=== PATIENT | female | born 1985 ===

== ENCOUNTER 2017-09-07 20:12 | Emergency (ER) | payer SELFPAY ==
[2017-09-07 20:12] VITALS: BMI 24.2
--- NOTE | 2017-09-07 23:25 | C.PDOC ---
History Of Present Illness 32 year old female presents to the ER with a complaint of pain to the mid chest and back for the past 2 days that worsens with movement and deep inspiration, associated with a cough. Denies sick contact, recent travel, or SOB. NO OCP use , no recent travel or recent immobilization h/o Time Seen by Provider: 09/07/17 20:51 Chief Complaint (Nursing): Chest Pain History Per: Patient History/Exam Limitations: no limitations Onset/Duration Of Symptoms: Days Current Symptoms Are (Timing): Still Present Associated Symptoms: denies: Nausea, Dyspnea, Diaphoresis, Syncope Modifying Factors: None Exacerbating Factors: Movement, Deep Breathing Alleviating Factors: None Recent travel outside of the [place]: No Past Medical History Reviewed: Historical Data, Nursing Documentation, Vital Signs Vital Signs: Last Vital Signs Temp 98.2 F 09/07/17 23:34 Pulse 76 09/07/17 23:34 Resp 18 09/07/17 23:34 BP 110/71 09/07/17 23:34 Pulse Ox 96 09/07/17 23:52 - Medical History PMH: Asthma Surgical History: No Surg Hx - [facility] Procedures DRAINAGE OF SPINAL CANAL, PERCUTANEOUS APPROACH, DIAGNOSTIC (08/21/16) Family History: States: Unknown Family Hx - Social History Hx Tobacco Use: No Hx Alcohol Use: No Hx Substance Use: No - Immunization History Hx Tetanus Toxoid Vaccination: No Hx Influenza Vaccination: No Hx Pneumococcal Vaccination: No Review Of Systems Constitutional: Negative for: Fever, Chills Respiratory: Positive for: Cough. Negative for: Shortness of Breath Gastrointestinal: Negative for: Vomiting Musculoskeletal: Positive for: Back Pain, Other (Chest wall) Physical Exam - Physical Exam Appears: Non-toxic, No Acute Distress Skin: Normal Color, Warm, Dry Head: Atraumatic, Normacephalic Eye(s): bilateral: Normal Inspection Oral Mucosa: Moist Neck: Normal, Supple Chest: Symmetrical, Tenderness (With palpation) Cardiovascular: Rhythm Regular Respiratory: Normal Breath Sounds, No Rales, No Rhonchi, No Wheezing Gastrointestinal/Abdominal: Soft, No Tenderness Neurological/Psych: Oriented x3, Normal Speech ED Course And Treatment ECG: Interpreted By Me, Viewed By Me ECG Rhythm: Sinus Rhythm ECG Interpretation: Normal Interpretation Of ECG: No ST/T wave changes Rate From EC O2 Sat by Pulse Oximetry: 96 (Room air) Pulse Ox Interpretation: Normal - Radiology CXR: Interpreted by Me, Viewed By Me CXR Interpretation: Yes: No Acute Disease. No: Infiltrates Progress Note: Patient reassured pain is most likely musculoskeletal rather than cardiac due to minimal risk factors and normal EKG, CXR was negative for abnormalites, tylenol was administered for pain and patient instructed to follow up with PMD for further evaluation. Disposition Counseled Patient/Family Regarding: Need For Followup, Rx Given - Disposition Referrals: [facility] [Outside] Disposition: HOME/ ROUTINE Disposition Time: 23:22 Condition: STABLE Additional Instructions: Please follow up in Clinic Return to ER if worse Prescriptions: traMADol [Ultram] 50 mg PO TID #14 tab Instructions: Upper Respiratory Infection (ED), Musculoskeletal Pain (ED) Forms: [employer] (Luxembourger) Print Language: SETSWANA - Clinical Impression Clinical Impression: Upper respiratory infection - Scribe Statement The provider has reviewed the documentation as recorded by the Scribe Frank Hill All medical record entries made by the Scribe were at my direction and personally dictated by me. I have reviewed the chart and agree that the record accurately reflects my personal performance of the history, physical exam, medical decision making, and the department course for this patient. I have also personally directed, reviewed, and agree with the discharge instructions and disposition.
[2017-09-07 23:35] VITALS: BP 110/71; PULSE 76; RESP 18; TEMP 98.2
[2017-09-07 23:47] VITALS: O2SAT 96
--- NOTE | 2017-09-08 09:22 | RAD ---
HISTORY: chest , back pain COMPARISON: Portable chest 05/14/2015 TECHNIQUE: Chest PA and lateral FINDINGS: LUNGS: No active pulmonary disease. PLEURA: No significant pleural effusion identified. No pneumothorax apparent. CARDIOVASCULAR: Normal. OSSEOUS STRUCTURES: No significant abnormalities. VISUALIZED UPPER ABDOMEN: Normal. OTHER FINDINGS: None. IMPRESSION: No interval acute cardiopulmonary disease appreciated.
--- NOTE | 2017-09-09 10:36 | CARD ---
APPROVED REPORT EKG Measurement Heart [id number] <Conclusion> Normal sinus rhythm Nonspecific ST abnormality Abnormal ECG
== END 2017-09-07 23:35 | disposition home or self-care (01) ==
LOC: C.ER 20:12
DX: J06.9 Acute upper respiratory infection, unspecified (principal)

== ENCOUNTER 2017-12-24 07:32 | Emergency (ER) | payer OTHER ==
[2017-12-24 07:38] VITALS: BMI 28.3
[2017-12-24 07:39] VITALS: RESP 16; O2SAT 100
[2017-12-24 07:57] LABS: HCG,QUALITATIVE URINE POSITIVE (NEGATIVE)
[2017-12-24 08:12] LABS: SQUAMOUS EPITHIAL 27 /hpf (0-5); URINE BACTERIA OCC (<OCC); URINE BILIRUBIN NEGATIVE (NEGATIVE); URINE BLOOD 3+ (NEGATIVE); URINE CLARITY Hazy (Clear); URINE COLOR Yellow (YELLOW); URINE GLUCOSE (UA) NORMAL (Normal); URINE LEUKOCYTE ESTERASE 3+ Leu/uL (Negative); URINE PROTEIN 1+ mg/dL (NEGATIVE); URINE UROBILINOGEN NORMAL mg/dL (0.2-1.0)
--- NOTE | 2017-12-24 08:51 | C.PDOC ---
History Of Present Illness 32 y/o female currently 6 weeks presents to ED with complaints of vaginal bleeding since yesterday with mild suprapubic pain. Patient reports she has her first OBGYN appointment 12/24. Patient states yesterday she slipped and caught herself, denies falling to ground. Denies fever, chills, back pain, nausea, vomiting or any other complaints at this time. LMP 11/04/2017 Time Seen by Provider: 12/24/17 07:46 Chief Complaint (Nursing): Female Genitourinary History Per: Patient History/Exam Limitations: no limitations Onset/Duration Of Symptoms: Days Current Symptoms Are (Timing): Still Present Past Medical History Reviewed: Historical Data, Nursing Documentation, Vital Signs Vital Signs: Last Vital Signs Temp 98.2 F 12/24/17 11:06 Pulse 78 12/24/17 11:06 Resp 16 12/24/17 11:06 BP 112/68 12/24/17 11:06 Pulse Ox 100 12/24/17 14:09 - Medical History PMH: Asthma Surgical History: No Surg Hx - [facility] Procedures DRAINAGE OF SPINAL CANAL, PERCUTANEOUS APPROACH, DIAGNOSTIC (08/21/16) Family History: States: No Known Family Hx - Social History Hx Tobacco Use: No Hx Alcohol Use: No Hx Substance Use: No - Immunization History Hx Tetanus Toxoid Vaccination: No Hx Influenza Vaccination: No Hx Pneumococcal Vaccination: No Review Of Systems Constitutional: Negative for: Fever, Chills Gastrointestinal: Positive for: Abdominal Pain. Negative for: Nausea, Vomiting Genitourinary: Positive for: Vaginal Bleeding. Negative for: Dysuria Musculoskeletal: Negative for: Back Pain Skin: Negative for: Rash Physical Exam - Physical Exam Appears: Non-toxic, No Acute Distress Skin: Normal Color, Warm, Dry, No Rash Head: Atraumatic, Normacephalic Oral Mucosa: Moist Neck: Normal ROM, Supple Cardiovascular: Rhythm Regular, No Murmur Respiratory: Normal Breath Sounds, No Rales, No Rhonchi, No Wheezing Gastrointestinal/Abdominal: Soft, No Tenderness, No Guarding, No Rebound Back: No CVA Tenderness Extremity: Bilateral: Atraumatic Neurological/Psych: Oriented x3, Normal Speech, Normal Cognition ED Course And Treatment - Laboratory Results Result Diagrams: 12/24/17 08:54 12/24/17 08:54 O2 Sat by Pulse Oximetry: 100 (RA) Pulse Ox Interpretation: Normal - CT Scan/US Abdomen US Other Rad Studies (CT/US): Read By Radiologist, Radiology Report Reviewed CT/US Interpretation: Indication: preg, pain right side, bleeding. Comparison: None. Technique: Real-time transabdominal pelvic ultrasound was performed. In addition a transvaginal pelvic ultrasound was necessary to better depict pelvic anatomy. Findings: The uterus measures approximately 9.3 x 5.9 x 7.4 cm. Anteverted. 1.7 x 1.5 x 1.6 cm submucosal fibroid. Cervix length measures approximately 3.3 cm. Intrauterine cystic structure consistent with gestational sac measures 1.1 cm and is compatible with a gestational age of 5 weeks 2 days. No evidence of pole or yolk sac. The right ovary measures 4.0 x 1.8 x 3.1 cm. The left ovary measures 2.4 x 1.5 x 2.5 cm. Blood flow was demonstrated to both ovaries. Small pelvic fluid, cul-de-sac. Impression: Intrauterine gestational sac consistent with gestational age 5 weeks 2 days. No evidence of pole or yolk sac. Correlate clinically and follow-up as indicated. 1.7 cm submucosal fibroid. Small pelvic fluid, cul-de-sac. Medical Decision Making Medical Decision Making: Impression: Pelvic pain, Differential Diagnosis included but are not limited to: ectopic, threatened AB , cystitis Plan: Blood work, Beta HCG, Abdomen US Prior Visits: Notes and results from previous visits were reviewed. Progress Notes: Labs reviewed and US reviewed Re-evaluation: Patient feels better, no bleeding. Discussed results with patient and provide copy of lab and imaging reports. Patient expresses understanding. Counseling was provided regarding the diagnosis and prognosis. All questions answered and there is agreement with the plan to discharge home with instructions. Patient is stable for discharge. Advised to return if symptoms persist or worsen. Reassessment Condition: Re-examined, Improved Dispo: Discharge home. Patient was recommended to follow up with [facility] or clinic in 1-2 days. Return to ED if symptoms worsen. Disposition Counseled Patient/Family Regarding: Diagnosis, Need For Followup - Disposition [facility] Disposition: HOME/ ROUTINE Disposition Time: 11:00 Condition: GOOD Additional Instructions: Tus laboratorios fueron normales. El ultrasonido muestra yosvany preez de 5 semanas y 2 quintero. No hay evidencia de saco vitelino . [place] puede ser demasiado temprano y deber realizar un seguimiento con green obstetra / ginec logo en 1 a 2 semanas para realizar anlisis de chemo y posiblemente necesite otro ultrasonido. Jaiden un seguimiento con green mdico primario o clnica en 2-5 quintero para yosvany evaluacin adicional Regrese al departamento de emergencia en cualquier momento si los sntomas persisten o empeoran. Your labs were normal. Ultrasound shows pregancy of 5 weeks 2 days. There is no evidence of yolk sac. This may be too early and you will need to follow up with your [facility] in 1-2 weeks for repeat bloodwork and possibly need another ultrasound. Follow up with your primary medical doctor or clinic in 2-5 days for further evaluation Return to the emergency department at any time if symptoms persist or worsen. Instructions: Threatened Miscarriage (DC) Forms: [employer] (Omani) Print Language: URDU - POA Present On Arrival: None - Clinical Impression Clinical Impression: Threatened miscarriage - PA / ACCESS ASSOC / Resident Statement MD/DO has reviewed & agrees with the documentation as recorded. - Scribe Statement The provider has reviewed the documentation as recorded by the Scribaliyah Grimm All medical record entries made by the Scribe were at my direction and personally dictated by me. I have reviewed the chart and agree that the record accurately reflects my personal performance of the history, physical exam, medical decision making, and the department course for this patient. I have also personally directed, reviewed, and agree with the discharge instructions and disposition.
[2017-12-24 09:12] LABS: BASO # 0.1 K/uL (0.0-0.2); BASO % 0.7 % (0.0-2.0); EOS # 0.2 K/uL (0.0-0.7); EOS % 2.3 % (0.0-4.0); HEMOGLOBIN 9.8 g/dL (11.0-16.0); LYMPH # 2.1 K/uL (1.0-4.3); LYMPH % 22.9 % (20.0-40.0); MEAN CORPUSCULAR HEMOGLOBIN 23.3 pg (27.0-31.0); MEAN CORPUSCULAR HGB CONC 31.8 g/dL (33.0-37.0); MEAN PLATELET VOLUME 9.1 fL (7.2-11.7); MONO # 0.7 K/uL (0.0-0.8); MONO % 7.2 % (0.0-10.0); NEUT # 6.2 K/uL (1.8-7.0); NEUT % 66.9 % (50.0-75.0); NRBC % 0.1 % (0.0-2.0); RBC 4.18 Mil/uL (3.80-5.20); RED CELL DISTRIBUTION WIDTH 19.4 % (11.5-14.5); WHITE BLOOD COUNT 9.3 K/uL (4.8-10.8)
[2017-12-24 09:15] LABS: MEAN CELL VOLUME 73.5 fL (81.0-99.0)
[2017-12-24 09:27] LABS: ALB/GLOB RATIO 1.1 (1.0-2.1); ALT/SGPT 22 U/L (9-52); AST/SGOT 30 U/L (14-36); BLOOD UREA NITROGEN 10 mg/dL (7-17); CALCIUM 8.5 mg/dl (8.6-10.4); GFR AFRICAN-AMERICAN > 60; GFR NON-AFRICAN AMERICAN > 60
--- NOTE | 2017-12-24 10:36 | US ---
Indication: preg, pain right side, bleeding Comparison: None. Technique: Real-time transabdominal pelvic ultrasound was performed. In addition a transvaginal pelvic ultrasound was necessary to better depict pelvic anatomy. Findings: The uterus measures approximately 9.3 x 5.9 x 7.4 cm. Anteverted. 1.7 x 1.5 x 1.6 cm submucosal fibroid. Cervix length measures approximately 3.3 cm. Intrauterine cystic structure consistent with gestational sac measures 1.1 cm and is compatible with a gestational age of 5 weeks 2 days. No evidence of pole or yolk sac. The right ovary measures 4.0 x 1.8 x 3.1 cm. The left ovary measures 2.4 x 1.5 x 2.5 cm. Blood flow was demonstrated to both ovaries. Small pelvic fluid, cul-de-sac. Impression: Intrauterine gestational sac consistent with gestational age 5 weeks 2 days. No evidence of pole or yolk sac. Correlate clinically and follow-up as indicated. 1.7 cm submucosal fibroid. Small pelvic fluid, cul-de-sac.
[2017-12-24 11:07] VITALS: BP 112/68; PULSE 78; TEMP 98.2
== END 2017-12-24 11:07 | disposition home or self-care (01) ==
LOC: C.ER 07:32
DX: O20.0 Threatened abortion (principal); Z3A.01 Less than 8 weeks gestation of pregnancy

== ENCOUNTER 2018-01-15 13:14 | Emergency (ER) | payer MEDICAID, OTHER ==
[2018-01-15 13:15] VITALS: BMI 28.3
--- NOTE | 2018-01-15 14:04 | C.PDOC ---
History Of Present Illness Ashly Collins is a 32 year old female, with no significant past medical history, who presents to the emergency department complaining of vaginal bleeding and crampy abdominal pain onset since today. Patient is x3 months , A0 and reports noting small amounts of vaginal bleeding. Patient reports she had an ultrasound done here 1 month ago which showed gestational sac estimating 5 weeks in size and another US about 1 week ago which showed 5-6 weeks in size. She did not take any medications for pain. She denies any dysuria, fever, or chills. No further medical complaints. PMD: None provided. Time Seen by Provider: 01/15/18 13:42 Chief Complaint (Nursing): Female Genitourinary History Per: Patient History/Exam Limitations: no limitations Onset/Duration Of Symptoms: Hrs (today) Current Symptoms Are (Timing): Still Present Quality Of Discomfort: Cramping Associated Symptoms: denies: Fever, Chills, Urinary Symptoms (dysuria) : 2 Para: 1 Miscarriage: 0 Past Medical History Reviewed: Historical Data, Nursing Documentation, Vital Signs Vital Signs: Last Vital Signs Temp 98.2 F 01/15/18 16:30 Pulse 67 01/15/18 16:30 Resp 18 01/15/18 16:30 BP 98/66 L 01/15/18 16:30 Pulse Ox 100 01/15/18 16:47 - Medical History PMH: Asthma Denies: Chronic Kidney Disease Surgical History: No Surg Hx - [facility] Procedures DRAINAGE OF SPINAL CANAL, PERCUTANEOUS APPROACH, DIAGNOSTIC (08/21/16) Family History: States: Unknown Family Hx - Social History Hx Tobacco Use: No Hx Alcohol Use: No Hx Substance Use: No - Immunization History Hx Tetanus Toxoid Vaccination: No Hx Influenza Vaccination: No Hx Pneumococcal Vaccination: No Review Of Systems Except As Marked, All Systems Reviewed And Found Negative. Constitutional: Negative for: Fever Respiratory: Negative for: Shortness of Breath Gastrointestinal: Positive for: Abdominal Pain (crampy) Physical Exam - Physical Exam Additional Physical Exam Comments: Constitutional: No acute distress. Head: Normocephalic. Atraumatic. Eyes: PERRL. ENT: Moist mucous membranes. Neck: Supple. Cardiovascular: Regular rate. Radial pulse 2+ bilaterally. Chest: No tenderness. Respiratory: Clear to auscultation bilaterally. GI: Soft. Suprapubic tenderness. No guarding. Nondistended. Back: No CVA tenderness. Musculoskeletal: No tenderness or swelling of extremities. Skin: No rash. Neurologic: Alert, no focal deficit. ED Course And Treatment - Laboratory Results Result Diagrams: 01/15/18 14:17 01/15/18 14:17 O2 Sat by Pulse Oximetry: 100 (RA) Pulse Ox Interpretation: Normal Medical Decision Making Medical Decision Making: Initial Impression: Initial Plan: --Type and screen --Beta-HCG, Quantitative --CMP --Lipase --CBC w/ differential --Tylenol 325mg tab 650 mg PO --Urine culture --Urinalysis --Transvaginal [US] --Reevaluation HCG [id number] Impression: 1. Suggestion of an intrauterine gestational sac measuring approximately 1.9 centimeters corresponding to a gestational age of approximately 6 weeks and 3 days. No pole or yolk sac identified. Correlate clinically and follow-up as clinically indicated. 2. 1.9 centimeter heterogeneous lesion in the mid fundal intramural region of the uterus suggestive for a fibroid lesion. 3. Cervix measures 3.2 centimeters. Trace fluid in the cervical canal. 4. Small amount of free fluid adjacent to the right ovary. Limited 1st trimester ultrasound for viability purposes only. Continued interval followup with serial ultrasound, serial HCG levels, and gynecological consultation would be helpful if clinically indicated. Hb stable from 1 month prior. Vitals stable. Discussed case with Dr. Leach. Given multiple ultrasounds with hcg over this duration of time, shows blighted ovum. No evidence of adnexal masses. Ovaries normal in size. Patient advised expectant management vs cytotec x 2 days. Instructed follow up with clinic within 2 weeks for re-evaluation. Instructed to return to ED for uncontrollable pain, bleeding, near syncope, chest pain, palpitations, etc. Disposition - [facility] Disposition: HOME/ ROUTINE Disposition Time: 16:43 Condition: STABLE Additional Instructions: Return to the Emergency Department if you have uncontrollable bleeding, feel like you are going to pass out, or uncontrollable pain. Prescriptions: Acetaminophen [Tylenol 325mg tab] 2 tab PO Q4H #30 tab Ibuprofen [Motrin] 600 mg PO Q6 #25 tab miSOPROStol [Cytotec] 2 tab PO TID #12 tab Forms: [employer] (Dominican) - Clinical Impression Clinical Impression: Blighted ovum - Scribe Statement The provider has reviewed the documentation as recorded by the Yuri Abdul Provider Attestation: All medical record entries made by the Isaíasibaliyah were at my direction and personally dictated by me. I have reviewed the chart and agree that the record accurately reflects my personal performance of the history, physical exam, medical decision making, and the department course for this patient. I have also personally directed, reviewed, and agree with the discharge instructions and disposition.
[2018-01-15 14:15] LABS: SQUAMOUS EPITHIAL 1 /hpf (0-5); URINE BACTERIA RARE (<OCC); URINE BILIRUBIN NEGATIVE (NEGATIVE); URINE BLOOD 1+ (NEGATIVE); URINE CLARITY Clear (Clear); URINE COLOR Yellow (YELLOW); URINE GLUCOSE (UA) NORMAL (Normal); URINE LEUKOCYTE ESTERASE NEG Leu/uL (Negative); URINE PROTEIN NEGATIVE (NEGATIVE); URINE UROBILINOGEN NORMAL mg/dL (0.2-1.0)
[2018-01-15 14:21] LABS: BASO # 0.1 K/uL (0.0-0.2); BASO % 1.1 % (0.0-2.0); EOS # 0.2 K/uL (0.0-0.7); EOS % 2.3 % (0.0-4.0); HEMOGLOBIN 10.1 g/dL (11.0-16.0); LYMPH # 2.1 K/uL (1.0-4.3); MEAN CELL VOLUME 74.1 fL (81.0-99.0); MEAN CORPUSCULAR HEMOGLOBIN 24.2 pg (27.0-31.0); MEAN CORPUSCULAR HGB CONC 32.6 g/dL (33.0-37.0); MEAN PLATELET VOLUME 7.9 fL (7.2-11.7); MONO # 0.8 K/uL (0.0-0.8); MONO % 8.2 % (0.0-10.0); NEUT # 6.1 K/uL (1.8-7.0); NEUT % 65.4 % (50.0-75.0); RBC 4.2 Mil/uL (3.80-5.20); RED CELL DISTRIBUTION WIDTH 19.6 % (11.5-14.5); WHITE BLOOD COUNT 9.2 K/uL (4.8-10.8)
[2018-01-15 14:36] LABS: ALB/GLOB RATIO 1.1 (1.0-2.1); ALT/SGPT 32 U/L (9-52); AST/SGOT 23 U/L (14-36); BLOOD UREA NITROGEN 8 mg/dL (7-17); CALCIUM 8.3 mg/dl (8.6-10.4); GFR AFRICAN-AMERICAN > 60; GFR NON-AFRICAN AMERICAN > 60; LIPASE 106 U/L (23-300)
--- NOTE | 2018-01-15 16:03 | US ---
Pelvic ultrasound History: Bleeding. . Comparison: Ultrasound dated 12/24/2017 Technique: Real-time sonography was performed through the pelvis utilizing transabdominal and transvaginal techniques. Findings: Please note this was a limited study for viability purposes only. Uterus: 11.9 x 5.4 x 6.6 centimeters. Heterogeneous echotexture. Retroverted. In the mid fundal region of the uterus, there is an intramural lesion suggestive for a fibroid lesion measuring 1.6 x 1.7 x 1.9 centimeters. Cervix measures 3.2 centimeters. Trace fluid in the cervical canal. Suggestion of an intrauterine gestational sac measuring 1.9 centimeters corresponding to a gestational age of approximately 6 weeks and 3 days. No yolk sac or pole identified. Small amount of free fluid adjacent to the right ovary. Right ovary: 2.8 x 2.5 x 2.8 centimeters. Normal flow. Left ovary: 2.7 x 1.5 x 2.4 centimeters. [place] [id number]. Impression: 1. Suggestion of an intrauterine gestational sac measuring approximately 1.9 centimeters corresponding to a gestational age of approximately 6 weeks and 3 days. No pole or yolk sac identified. Correlate clinically and follow-up as clinically indicated. 2. 1.9 centimeter heterogeneous lesion in the mid fundal intramural region of the uterus suggestive for a fibroid lesion. 3. Cervix measures 3.2 centimeters. Trace fluid in the cervical canal. 4. Small amount of free fluid adjacent to the right ovary. Limited 1st trimester ultrasound for viability purposes only. Continued interval followup with serial ultrasound, serial HCG levels, and gynecological consultation would be helpful if clinically indicated.
[2018-01-15 16:31] VITALS: BP 98/66; PULSE 67; RESP 18; TEMP 98.2
[2018-01-15 16:46] VITALS: O2SAT 100
== END 2018-01-15 17:05 | disposition home or self-care (01) ==
LOC: C.ER 13:14
DX: O02.0 Blighted ovum and nonhydatidiform mole (principal)

== ENCOUNTER 2018-01-18 18:40 | Emergency (ER) | payer MEDICAID ==
[2018-01-18 18:40] VITALS: BMI 28.3
[2018-01-18] MEDS ORDERED: Sodium Chloride 0.9% 1,000 ML IV ONE (19:56)
--- NOTE | 2018-01-18 19:56 | C.PDOC ---
History Of Present Illness 32 year old female presents to the ED c/o suprapubic pain and vaginal bleeding. Patient was seen in the ED few days ago for vaginal bleeding, patient had a US done which showed questionable 6 week sack. Patient was D/C home and treated for threatened miscarriage. Patient came today c/o increased pain and vaginal bleeding. Patient denies fever, chills, nausea, vomit, diarrhea, weakness, numbness. Time Seen by Provider: 01/18/18 19:55 Chief Complaint (Nursing): Abdominal Pain History Per: Patient History/Exam Limitations: no limitations Onset/Duration Of Symptoms: Days Current Symptoms Are (Timing): Still Present Location Of Pain/Discomfort: Suprapubic Radiation Of Pain To:: None Quality Of Discomfort: "Pain" Associated Symptoms: Urinary Symptoms Exacerbating Factors: None Alleviating Factors: None Last Bowel Movement: Today Recent travel outside of the [place]: No Additional History Per: Patient Abnormal Vaginal Bleeding: Yes Past Medical History Reviewed: Historical Data, Nursing Documentation, Vital Signs Vital Signs: Last Vital Signs Temp 98.5 F 01/19/18 00:07 Pulse 74 01/19/18 00:07 Resp 16 01/19/18 00:07 BP 120/78 01/19/18 00:07 Pulse Ox 100 01/19/18 00:07 - Medical History PMH: Asthma Denies: Chronic Kidney Disease Surgical History: No Surg Hx - [facility] Procedures DRAINAGE OF SPINAL CANAL, PERCUTANEOUS APPROACH, DIAGNOSTIC (08/21/16) Family History: States: Unknown Family Hx - Social History Hx Tobacco Use: No Hx Alcohol Use: No Hx Substance Use: No - Immunization History Hx Tetanus Toxoid Vaccination: No Hx Influenza Vaccination: No Hx Pneumococcal Vaccination: No Review Of Systems Constitutional: Negative for: Fever, Chills Cardiovascular: Negative for: Chest Pain Respiratory: Negative for: Shortness of Breath Gastrointestinal: Positive for: Abdominal Pain Genitourinary: Positive for: Vaginal Bleeding Skin: Negative for: Rash Physical Exam - Physical Exam Appears: Non-toxic, No Acute Distress Skin: Warm, Dry Head: Normacephalic Eye(s): bilateral: Normal Inspection Nose: No Discharge Oral Mucosa: Moist Neck: Supple Chest: Symmetrical Cardiovascular: Rhythm Regular, No Murmur Respiratory: No Rales, No Rhonchi, No Wheezing Gastrointestinal/Abdominal: Soft, Tenderness (suprapubic), No Guarding, No Rebound Back: No CVA Tenderness Extremity: Normal ROM, No Tenderness, No Swelling Extremity: Bilateral: Atraumatic Neurological/Psych: Oriented x3 Gait: Steady ED Course And Treatment - Laboratory Results Result Diagrams: 01/18/18 20:29 01/18/18 20:51 O2 Sat by Pulse Oximetry: 99 (ON RA) Pulse Ox Interpretation: Normal Progress Note: Plan: - Labs. - IV fluids. - UA. - Transvaginal US Reevaluation Time: 00:24 Reassessment Condition: Improved Disposition Counseled Patient/Family Regarding: Studies Performed, Diagnosis, Need For Followup, Rx Given - Disposition Referrals: Avery Vegas MD [Primary Care Provider] - Disposition: HOME/ ROUTINE Disposition Time: 19:55 Condition: FAIR Prescriptions: Nitrofurantoin Macrocrystals [Macrobid] 1 cap PO BID #14 cap Instructions: Threatened Miscarriage (DC), Urinary Tract Infection, Adult (DC) Forms: [employer] (Malay) Print Language: FAROESE - Clinical Impression Clinical Impression: Threatened miscarriage, UTI (urinary tract infection) during - Scribe Statement The provider has reviewed the documentation as recorded by the Scribe Yared Taylor All medical record entries made by the Scribe were at my direction and personally dictated by me. I have reviewed the chart and agree that the record accurately reflects my personal performance of the history, physical exam, medical decision making, and the department course for this patient. I have also personally directed, reviewed, and agree with the discharge instructions and disposition.
[2018-01-18] MEDS ORDERED: Sodium Chloride 0.9% 1,000 ML ONE (20:13)
[2018-01-18 20:35] LABS: BASO # 0.1 K/uL (0.0-0.2); BASO % 0.6 % (0.0-2.0); EOS # 0.3 K/uL (0.0-0.7); HEMOGLOBIN 10.5 g/dL (11.0-16.0); LYMPH # 2.8 K/uL (1.0-4.3); LYMPH % 18.2 % (20.0-40.0); MEAN CELL VOLUME 74.1 fL (81.0-99.0); MEAN CORPUSCULAR HEMOGLOBIN 23.7 pg (27.0-31.0); MEAN PLATELET VOLUME 8.4 fL (7.2-11.7); MONO % 6.4 % (0.0-10.0); NEUT # 11.1 K/uL (1.8-7.0); NEUT % 72.8 % (50.0-75.0); NRBC % 0.1 % (0.0-2.0); RBC 4.43 Mil/uL (3.80-5.20); RED CELL DISTRIBUTION WIDTH 19.7 % (11.5-14.5); WHITE BLOOD COUNT 15.3 K/uL (4.8-10.8)
[2018-01-18 20:44] LABS: PROTHROMBIN TIME 11.8 SECONDS (9.7-12.2); SQUAMOUS EPITHIAL 4 /hpf (0-5); URINE AMORPHOUS SEDIMENT RARE /ul (<OCC); URINE BILIRUBIN NEGATIVE (NEGATIVE); URINE BLOOD 3+ (NEGATIVE); URINE CLARITY Hazy (Clear); URINE COLOR Yellow (YELLOW); URINE GLUCOSE (UA) NORMAL (Normal); URINE LEUKOCYTE ESTERASE NEG Leu/uL (Negative); URINE PROTEIN 1+ mg/dL (NEGATIVE); URINE UROBILINOGEN NORMAL mg/dL (0.2-1.0)
[2018-01-18 23:17] LABS: ALB/GLOB RATIO 1.1 (1.0-2.1); ALBUMIN 3.9 g/dL (3.5-5.0); BLOOD UREA NITROGEN 7 mg/dL (7-17); CALCIUM 7.8 mg/dl (8.6-10.4); GFR AFRICAN-AMERICAN > 60; GFR NON-AFRICAN AMERICAN > 60
[2018-01-18 23:18] LABS: ALT/SGPT 23 U/L (9-52); AST/SGOT 27 U/L (14-36)
--- NOTE | 2018-01-18 23:58 | US ---
HISTORY: , vag bleed COMPARISON: Comparison is made to the previous study dated 01/15/2018 TECHNIQUE: Transabdominal and endovaginal ultrasound examination of the pelvis FINDINGS: UTERUS: Measures 10 x 5.2 x 6.7 cm. Normal in size and appearance. Again noted is fibroid in the uterus at the posterior wall measures 2.4 x 2.4 x 2.3 centimeter. ENDOMETRIUM: There is cystic structure in the endometrial cavity measures 3.05 x 1.72 x 1.4 centimeter may represent gestational sac. No evidence of pole or yolk sac. CERVIX: No cervical abnormality identified. RIGHT OVARY: Measures 3.1 x 1.6 x 3.1 cm. No solid mass. Normal flow. LEFT OVARY: Measures 2.5 x 2.3 x 1.55 cm. No solid mass. Normal flow. FREE FLUID: No significant free fluid noted. OTHER FINDINGS: None. IMPRESSION: Re- identification of cystic structure in the endometrial cavity may represent gestational sac. No evidence of pole or heart activity or yolk sac. No significant interval changes noted since the previous study.
[2018-01-19 00:07] VITALS: BP 120/78; PULSE 74; RESP 16; TEMP 98.5
[2018-01-19 00:26] VITALS: O2SAT 99
[2018-01-19] MEDS ORDERED: Morphine 4 MG/ML VIAL ONE (00:43)
== END 2018-01-19 00:55 | disposition home or self-care (01) ==
LOC: SUPCPDRO 18:40 → C.ER 18:40
DX: O20.0 Threatened abortion (principal); O23.41 Unspecified infection of urinary tract in pregnancy, first trimester; Z3A.01 Less than 8 weeks gestation of pregnancy
CPT/HCPCS: 76817; 80053; 81001; 84702; 85025; 85610; 85730; 86850; 86870; 86900; 96361; 96374; 99284; J2270; J7040

== ENCOUNTER 2018-09-26 09:55 | Emergency (ER) | payer MEDICAID ==
[2018-09-26 09:56] VITALS: BMI 28.3
[2018-09-26 10:06] VITALS: RESP 16
[2018-09-26 10:22] LABS: HCG,QUALITATIVE URINE POSITIVE (NEGATIVE)
[2018-09-26 10:31] LABS: SQUAMOUS EPITHIAL 27 /hpf (0-5); URINE BACTERIA OCC (<OCC); URINE BILIRUBIN NEGATIVE (NEGATIVE); URINE BLOOD NEGATIVE (NEGATIVE); URINE CLARITY Hazy (Clear); URINE COLOR Amber (YELLOW); URINE GLUCOSE (UA) NORMAL (Normal); URINE LEUKOCYTE ESTERASE 3+ Leu/uL (Negative); URINE PROTEIN 1+ mg/dL (NEGATIVE); URINE UROBILINOGEN NORMAL mg/dL (0.2-1.0)
[2018-09-26 11:03] LABS: BASO # 0.1 K/uL (0.0-0.2); BASO % 0.6 % (0.0-2.0); EOS # 0.2 K/uL (0.0-0.7); HEMOGLOBIN 11.9 g/dL (11.0-16.0); LYMPH # 2.4 K/uL (1.0-4.3); LYMPH % 25.7 % (20.0-40.0); MEAN CORPUSCULAR HEMOGLOBIN 26.3 pg (27.0-31.0); MEAN CORPUSCULAR HGB CONC 32.2 g/dL (33.0-37.0); MEAN PLATELET VOLUME 9.3 fL (7.2-11.7); MONO # 0.6 K/uL (0.0-0.8); MONO % 6.2 % (0.0-10.0); NEUT # 6.2 K/uL (1.8-7.0); NEUT % 65.5 % (50.0-75.0); NRBC % 0.1 % (0.0-2.0); RBC 4.53 Mil/uL (3.80-5.20); RED CELL DISTRIBUTION WIDTH 17.6 % (11.5-14.5); WHITE BLOOD COUNT 9.4 K/uL (4.8-10.8)
[2018-09-26 11:05] LABS: MEAN CELL VOLUME 81.7 fL (81.0-99.0)
--- NOTE | 2018-09-26 11:28 | C.PDOC ---
History Of Present Illness 33 yo female, 2 wks , come in for evaluation of suprapubic pain gradually developed for past few days associated with intermittent vaginal spotting/ Pt denies fever, chills, recent illness, CP, SOB, dyspnea, abd. pain, V/D, UTI sx. Pt denies previous hx of ectopic. Time Seen by Provider: 09/26/18 10:08 Chief Complaint (Nursing): Female Genitourinary History Per: Patient Past Medical History Reviewed: Historical Data, Nursing Documentation, Vital Signs Vital Signs: Last Vital Signs Temp 98.4 F 09/26/18 10:02 Pulse 91 H 09/26/18 10:02 Resp 16 09/26/18 10:02 BP 102/70 09/26/18 10:02 Pulse Ox 98 09/26/18 10:02 - Medical History PMH: Asthma Denies: Chronic Kidney Disease - [facility] Procedures DRAINAGE OF SPINAL CANAL, PERCUTANEOUS APPROACH, DIAGNOSTIC (08/21/16) Family History: States: Unknown Family Hx, [place] (father at a young age), Diabetes, Hypertension - Social History Hx Tobacco Use: No Hx Alcohol Use: Yes (occasional) Hx Substance Use: No - Immunization History Hx Tetanus Toxoid Vaccination: No Hx Influenza Vaccination: No Hx Pneumococcal Vaccination: No Review Of Systems Except As Marked, All Systems Reviewed And Found Negative. Constitutional: Negative for: Fever, Chills ENT: Negative for: Throat Pain Cardiovascular: Negative for: Chest Pain Respiratory: Negative for: Cough, Shortness of Breath, Wheezing Gastrointestinal: Negative for: Vomiting, Diarrhea Genitourinary: Positive for: Vaginal Bleeding. Negative for: Dysuria Musculoskeletal: Negative for: Neck Pain Skin: Negative for: Rash Neurological: Negative for: Altered Mental Status, Headache, Dizziness Physical Exam - Physical Exam Appears: Well, Non-toxic, No Acute Distress Skin: Normal Color, Warm, Dry Eye(s): bilateral: PERRL Nose: No Flaring Oral Mucosa: Moist Throat: No Erythema Neck: Trachea Midline, Supple Cardiovascular: Rhythm Regular Respiratory: No Decreased Breath Sounds, No Accessory Muscle Use, No Stridor, No Wheezing Gastrointestinal/Abdominal: Soft, Tenderness (mild suprapubic), No Distention, No Guarding, No Rebound Back: No CVA Tenderness Extremity: Normal ROM, No Pedal Edema, No Swelling Neurological/Psych: Oriented x3, Normal Speech ED Course And Treatment - Laboratory Results Result Diagrams: 09/26/18 10:51 Lab Interpretation: Normal Urine POC: Positive O2 Sat by Pulse Oximetry: 98 Pulse Ox Interpretation: Normal - CT Scan/US OB US Other Rad Studies (CT/US): Radiology Report Reviewed CT/US Interpretation: . Progress Note: UA review and c/w UTI. preg (+). Pt was OBS in ED for 2 hours and remained tsbale. Afebrile, hemodynmaicaly tsable. Non-toxic. AbdL benign, (-) guarding, (-) rebound. back: (-) CVA tenderness. Blood work review and appears normal. US review (+) IUP, 5w, early for HR, no acute banormlities. Beta quant review and c/w US finidngs. Blood type : O positive. results review and discussed with ot. Pt rome slcinical findings c/w early r/o theatened , UTI. Pt advised, pelvic rest. F/U or return to ED in 2 days for beta re-check. return to ED at any time if any worsening. Disposition Counseled Patient/Family Regarding: Studies Performed, Diagnosis, Need For Followup, Rx Given - Disposition [facility] Disposition: HOME/ ROUTINE Disposition Time: 12:38 Condition: STABLE Additional Instructions: Encourage fluids, " pelvic rest", avoid sexual activity for 1 week, no heavy lifting Take medication as prescribed Follow up with OB or return to ED in 2 days for re-evaluation and beta quant re- check. return to ED if any worsening or new changes. Prescriptions: Nitrofurantoin Macrocrystals [Macrobid] 1 cap PO BID #14 cap Instructions: Threatened Miscarriage, Urinary Tract Infections in Adults Forms: [employer] (Yakut) Print Language: ANDORRAN - Clinical Impression Clinical Impression: UTI (urinary tract infection) during , Threatened
[2018-09-26 13:06] VITALS: BP 105/65; PULSE 90; TEMP 99; O2SAT 100
--- NOTE | 2018-09-26 13:07 | US ---
Date of service: 09/26/2018 PROCEDURE: OB Pelvic Ultrasound HISTORY: vaginal bleeding COMPARISON: None available. FINDINGS: UTERUS: Gestational sac: 10 mm equal to 5 weeks 1 day gestational age [place]-rump length 1 mm, out of range for age determination Heart rate: Not detected age (Ultrasound estimated): 5 weeks 1 day [place] T-gestational hemorrhage: None. Date of delivery (Ultrasound estimated) : 05/28/2019 2 mm yolk sac visualized. Uterus measures 9.2 x 6.7 x 7.4 cm. Posterior subserosal fibroid, 2.1 x 1.8 x 1.6 cm. CERVIX: Measures 3.0 cm. Long and closed. No cervical abnormality seen. RIGHT OVARY: Measures 2.6 x 1.8 x 2.2 cm. No mass lesion. Normal flow. LEFT OVARY: Measures 3.8 x 2.8 x 3.5 cm. Corpus luteum noted, approximately 1.8 cm. Simple cyst, 2.3 cm. Presumed physiologic.. Normal flow. FREE FLUID: None OTHER FINDINGS: None. IMPRESSION: Intrauterine gestation of approximately 5 weeks 1 day. cardiac activity is not detected. Follow-up with transvaginal pelvic ultrasound and serial beta HCG is advised. Incidental 2.1 cm uterine fibroid. Left ovarian corpus luteum.
== END 2018-09-26 13:12 | disposition home or self-care (01) ==
LOC: C.ER 09:55
DX: O23.41 Unspecified infection of urinary tract in pregnancy, first trimester (principal); O20.0 Threatened abortion; Z3A.01 Less than 8 weeks gestation of pregnancy

== ENCOUNTER 2018-10-16 07:44 | Emergency (ER) | payer MEDICAID ==
[2018-10-16 07:44] VITALS: BMI 28.3
[2018-10-16 07:49] VITALS: RESP 18
[2018-10-16] MEDS ORDERED: Sodium Chloride 0.9% 1,000 ML IV ONE (07:52)
[2018-10-16 08:45] LABS: BASO % 0.2 % (0.0-2.0); EOS # 0.2 K/uL (0.0-0.7); EOS % 2.4 % (0.0-4.0); HEMOGLOBIN 11.7 g/dL (11.0-16.0); LYMPH % 19.4 % (20.0-40.0); MEAN CELL VOLUME 81.9 fL (81.0-99.0); MEAN CORPUSCULAR HEMOGLOBIN 27.3 pg (27.0-31.0); MEAN CORPUSCULAR HGB CONC 33.4 g/dL (33.0-37.0); MEAN PLATELET VOLUME 8.8 fL (7.2-11.7); MONO # 0.6 K/uL (0.0-0.8); MONO % 6.2 % (0.0-10.0); NEUT # 7.4 K/uL (1.8-7.0); NEUT % 71.8 % (50.0-75.0); NRBC % 0.1 % (0.0-2.0); RBC 4.28 Mil/uL (3.80-5.20); RED CELL DISTRIBUTION WIDTH 18.7 % (11.5-14.5); WHITE BLOOD COUNT 10.3 K/uL (4.8-10.8)
[2018-10-16 08:47] LABS: HCG,QUALITATIVE URINE POSITIVE (NEGATIVE)
[2018-10-16 08:49] LABS: SQUAMOUS EPITHIAL 15 /hpf (0-5); URINE BACTERIA RARE (<OCC); URINE BILIRUBIN NEGATIVE (NEGATIVE); URINE BLOOD NEGATIVE (NEGATIVE); URINE CLARITY Hazy (Clear); URINE COLOR Yellow (YELLOW); URINE GLUCOSE (UA) NORMAL (Normal); URINE LEUKOCYTE ESTERASE 1+ Leu/uL (Negative); URINE PROTEIN NEGATIVE (NEGATIVE); URINE UROBILINOGEN NORMAL mg/dL (0.2-1.0)
--- NOTE | 2018-10-16 09:11 | C.PDOC ---
History Of Present Illness 33 years old female is currently 5-7 weeks and presents to ED for complaints of abdominal cramping associated with some spotting that began last night. LNMP was in mid august. Denies any other complaints. Patient was seen 09/26 for similar complaints. Time Seen by Provider: 10/16/18 07:51 Chief Complaint (Nursing): Female Genitourinary History Per: Patient History/Exam Limitations: no limitations Onset/Duration Of Symptoms: Hrs Current Symptoms Are (Timing): Still Present Quality Of Discomfort: Cramping Associated Symptoms: denies: Fever, Chills, Nausea, Vomiting, Diarrhea Recent travel outside of the [place]: No Abnormal Vaginal Bleeding: No : 3 Para: 1 Past Medical History Reviewed: Historical Data, Nursing Documentation, Vital Signs Vital Signs: Last Vital Signs Temp 98.4 F 10/16/18 07:46 Pulse 91 H 10/16/18 07:46 Resp 18 10/16/18 07:46 BP 125/78 10/16/18 07:46 Pulse Ox 98 10/16/18 07:46 - Medical History PMH: Asthma - [facility] Procedures DRAINAGE OF SPINAL CANAL, PERCUTANEOUS APPROACH, DIAGNOSTIC (08/21/16) Family History: States: Unknown Family Hx, [place] (father at a young age), Diabetes, Hypertension - Social History Hx Tobacco Use: No Hx Alcohol Use: Yes (occasional) Hx Substance Use: No - Immunization History Hx Tetanus Toxoid Vaccination: No Hx Influenza Vaccination: No Hx Pneumococcal Vaccination: No Review Of Systems Constitutional: Negative for: Fever, Chills Gastrointestinal: Positive for: Abdominal Pain (Cramping ). Negative for: Nausea, Vomiting, Diarrhea Genitourinary: Negative for: Vaginal Bleeding Skin: Negative for: Rash Neurological: Negative for: Weakness, Numbness Physical Exam - Physical Exam Appears: Non-toxic, No Acute Distress Skin: Normal Color, Warm, Dry, No Rash Head: Atraumatic, Normacephalic Eye(s): bilateral: Normal Inspection, PERRL, EOMI Oral Mucosa: Moist Neck: Normal ROM, Supple Chest: Symmetrical, No Tenderness Cardiovascular: Rhythm Regular, No Murmur Respiratory: Normal Breath Sounds, No Rales, No Rhonchi, No Wheezing Gastrointestinal/Abdominal: Bowel Sounds, Soft, Tenderness (Mild suprapubic ), No Distention, No Guarding Extremity: Bilateral: Atraumatic, Normal Color And Temperature, Normal ROM Pulses: Left Radial: Normal, Right Radial: Normal Neurological/Psych: Oriented x3, Normal Speech Gait: Steady ED Course And Treatment - Laboratory Results Result Diagrams: 10/16/18 08:39 10/16/18 08:39 Lab Interpretation: No Acute Changes O2 Sat by Pulse Oximetry: 98 (RA ) Pulse Ox Interpretation: Normal - CT Scan/US Obstetrics US Other Rad Studies (CT/US): Read By Radiologist, Radiology Report Reviewed CT/US Interpretation: Date of service: 10/16/2018. Indication: vaginal bleed, preg, pain. Comparison: 1st trimester ultrasound performed 09/26/18. Technique: Transabdominal pelvic ultrasound. Findings: The uterus measures approximately 14.5 x 7.4 x 9.1 cm. Anteverted. 1.9 x 2.5 x 1.9 cm fundal fibroid. Cervix length measures approximately 3.8 cm. There is a single intrauterine fetus present. The gestational sac measures 4.1 cm and is compatible with a gestational age of 9 weeks 3 days. The crown-rump length measures 1.4 cm and is compatible with a gestational age of 7 weeks 5 days. There is heart motion which measured 165 BPM. The right ovary is not visualized. The left ovary measures 3.9 x 2.4 x 3.2 cm and contains 1.7 cm probable corpus luteal cyst. Blood flow is demonstrated to the left ovary. Impression: Live single intrauterine with estimated gestational age 9 weeks 3 days by gestational sac calculation and 7 weeks 5 days by crown-rump length calculation. heart rate 165.9 bpm. Advise an anomaly screen at 16-18 weeks gestational age. 2.5 cm probable fundal fibroid. 1.7 cm complex left ovarian cyst, likely corpus luteum. Medical Decision Making Medical Decision Making: Impression: pelvic pain/bleeding Plan: * IV Fluids * Blood work * US Transvaginal * Urinalysis * Blood bank Progress: Patient was seen 09/26 with similar symptoms and had an US that shows IUP 5 weeks, no heart rate. Beta 9487 Labs reviewed and unremarkable. US shows IUP 9wks 3 days with FHR 165 UA shows UTI, will treat antibiotic Patient remained well and in no acute distress. Discussed results with him and patient to follow up with PMD. Disposition Counseled Patient/Family Regarding: Diagnosis, Need For Followup, Rx Given - Disposition Referrals: Tere De La Paz ACNP-BC [Advanced Practice Nurse] - Disposition: HOME/ ROUTINE Disposition Time: 11:53 Condition: STABLE Prescriptions: Nitrofurantoin Macrocrystals [Macrobid] 1 cap PO BID #14 cap Instructions: Urinary Tract Infection, Adult (DC) Print Language: ZIMBABWEAN - POA Present On Arrival: None - Clinical Impression Clinical Impression: UTI in - PA / [employer] CONSULTANT / Resident Statement MD/DO has reviewed & agrees with the documentation as recorded. - Scribe Statement The provider has reviewed the documentation as recorded by the Isaíasibaliyah Mccall All medical record entries made by the Isaíasibaliyah were at my direction and personal ly dictated by me. I have reviewed the chart and agree that the record accurately reflects my personal performance of the history, physical exam, medical decision making, and the department course for this patient. I have also personally directed, reviewed, and agree with the discharge instructions and disposition.
--- NOTE | 2018-10-16 10:51 | US ---
Date of service: 10/16/2018 Indication: vaginal bleed, preg, pain Comparison: 1st trimester ultrasound performed 09/26/18 Technique: Transabdominal pelvic ultrasound Findings: The uterus measures approximately 14.5 x 7.4 x 9.1 cm. Anteverted. 1.9 x 2.5 x 1.9 cm fundal fibroid. Cervix length measures approximately 3.8 cm. There is a single intrauterine fetus present. The gestational sac measures 4.1 cm and is compatible with a gestational age of 9 weeks 3 days. The crown-rump length measures 1.4 cm and is compatible with a gestational age of 7 weeks 5 days. There is heart motion which measured 165 BPM. The right ovary is not visualized. The left ovary measures 3.9 x 2.4 x 3.2 cm and contains 1.7 cm probable corpus luteal cyst. Blood flow is demonstrated to the left ovary. Impression: Live single intrauterine with estimated gestational age 9 weeks 3 days by gestational sac calculation and 7 weeks 5 days by crown-rump length calculation. heart rate 165.9 bpm. Advise an anomaly screen at 16-18 weeks gestational age 2.5 cm probable fundal fibroid. 1.7 cm complex left ovarian cyst, likely corpus luteum.
[2018-10-16 11:09] LABS: ALB/GLOB RATIO 1.4 (1.0-2.1); ALBUMIN 4.1 g/dL (3.5-5.0); ALT/SGPT 30 U/L (9-52); AST/SGOT 28 U/L (14-36); BLOOD UREA NITROGEN 8 mg/dL (7-17); CALCIUM 8.8 mg/dl (8.6-10.4); GFR NON-AFRICAN AMERICAN > 60
[2018-10-16 13:17] VITALS: BP 107/69; PULSE 76; TEMP 98.6
[2018-10-16 15:04] VITALS: O2SAT 98
== END 2018-10-16 13:00 | disposition home or self-care (01) ==
LOC: C.ER 07:44
DX: O23.41 Unspecified infection of urinary tract in pregnancy, first trimester (principal); Z3A.09 9 weeks gestation of pregnancy
CPT/HCPCS: 76801; 80053; 81001; 84702; 84703; 85025; 86850; 86870; 86900; 96360; 99284; J7030

== ENCOUNTER 2019-01-02 07:34 | Emergency (ER) | payer MEDICAID ==
[2019-01-02 07:34] VITALS: BMI 28.3
[2019-01-02 07:46] VITALS: RESP 18; O2SAT 100
[2019-01-02] MEDS ORDERED: Albuterol 0.083% Inhal Sol (2.5 mg/3 mL) UD IH STA (08:23)
[2019-01-02] MEDS ORDERED: Albuterol 0.083% Inhal Sol (2.5 mg/3 mL) UD ONE (08:45)
--- NOTE | 2019-01-02 08:47 | C.PDOC ---
History Of Present Illness 33 yo female , 18 wks w/PMHx of asthma, come in for evaluation of cold sx associated with low grade fever, nasal congestion, productive cough with clear sputum gradually developed for past few weeks. Denies high fever, chills, severe headache, dizziness, drooling, dysphagia, dyspnea, neck pain, CP, SOB, wheezing, abd. pain, V/D, hematuria, UTI sx. At present time, appears comfortable, not in any apparent distress. (+) care, no acute abnormalities during current . Time Seen by Provider: 01/02/19 07:44 Chief Complaint (Nursing): Cough, Cold, Congestion History Per: Patient Past Medical History Reviewed: Historical Data, Nursing Documentation, Vital Signs Vital Signs: Last Vital Signs Temp 98.2 F 01/02/19 07:40 Pulse 88 01/02/19 07:40 Resp 18 01/02/19 07:40 BP 104/68 01/02/19 07:40 Pulse Ox 100 01/02/19 07:40 - Medical History PMH: Asthma, Pneumonia Denies: Chronic Kidney Disease - [facility] Procedures DRAINAGE OF SPINAL CANAL, PERCUTANEOUS APPROACH, DIAGNOSTIC (08/21/16) Family History: States: Unknown Family Hx, [place] (father at a young age), Diabetes, Hypertension - Social History Hx Tobacco Use: No Hx Alcohol Use: Yes (occasional) Hx Substance Use: No - Immunization History Hx Tetanus Toxoid Vaccination: No Hx Influenza Vaccination: No Hx Pneumococcal Vaccination: No Review Of Systems Except As Marked, All Systems Reviewed And Found Negative. Constitutional: Negative for: Fever, Chills ENT: Positive for: Nose Discharge, Nose Congestion, Throat Pain. Negative for: Ear Discharge, Throat Swelling Cardiovascular: Negative for: Chest Pain Respiratory: Positive for: Cough. Negative for: Shortness of Breath, Wheezing Gastrointestinal: Negative for: Nausea, Vomiting, Abdominal Pain, Diarrhea Musculoskeletal: Negative for: Neck Pain Skin: Negative for: Rash Physical Exam - Physical Exam Appears: Well, Non-toxic, No Acute Distress, Other (occasional dry cugh noted) Skin: Normal Color, Warm, Dry, No Rash Head: Normacephalic Eye(s): bilateral: PERRL Ear(s): Bilateral: Normal Nose: No Flaring, Discharge (B/L congestion with scant clear discharge) Oral Mucosa: Moist Tongue: Normal Appearing Lips: Normal Appearing Throat: No Erythema, No Drooling Neck: Trachea Midline, Supple Cardiovascular: Rhythm Regular, No Murmur, No JVD Respiratory: No Decreased Breath Sounds, No Accessory Muscle Use, No Stridor, No Wheezing Gastrointestinal/Abdominal: Soft, No Tenderness, No Guarding, Other (Gravid) Extremity: Normal ROM, No Deformity, No Swelling Neurological/Psych: Oriented x3, Normal Speech ED Course And Treatment O2 Sat by Pulse Oximetry: 100 Pulse Ox Interpretation: Normal Progress Note: On re-eval, pt is afebrile, hemodynamicaly stable. Pt reports , mild improvement in sx. Non-toxic, not in resp. distress. PulseOx 100% RA. ENT: no acute findings, no drooling. neck: SUpple, (-) meningeal sign. Lungs: CTA B/L, BS equal B/L. Neurologicaly intact. Pt is asking for cough medication, advised on side effect during the , accepts risk " want to stop that cough". Pt has clinical finidngs c/w URI r/o acute bronchitis, . Pt advised on course of ds. REf. to F/u with PMD, OB in 2-3 days for re-evaluation Disposition Counseled Patient/Family Regarding: Diagnosis, Need For Followup, Rx Given - Disposition Referrals: [facility] [Outside] [facility]Outside[facility] [Outside] Disposition: HOME/ ROUTINE Disposition Time: 09:26 Condition: STABLE Additional Instructions: Encourage fluids Take medication as prescribed Cough syrup is given to patient's discretion, take as need only for severe cough Follow up with PMD, OB in 2-3 days for re-evaluation Return to ED if any worsening or new changes. Prescriptions: Albuterol HFA [Ventolin HFA 90 mcg/actuation (8 g)] 1 puff IH Q6 #1 inhaler Azithromycin 1 tab PO DAILY #4 tab Guaifenesin/Dextromethorphan [Guaifenesin Dm Syrup] 5 ml PO Q6 #120 ml Prednisone [Deltasone] 40 mg PO DAILY #6 tablet Instructions: Acute Bronchitis, - The Fifth Month, Upper Respiratory Infection (ED) Forms: [employer] (Nauruan), Work Excuse Print Language: CZECH - Clinical Impression Clinical Impression: Bronchitis, Upper respiratory infection,
[2019-01-02] MEDS ORDERED: Promethazine/Cod 6.25mg-10mg/5ml Syr UD PO STA (09:13)
[2019-01-02] MEDS ORDERED: Promethazine/Cod 6.25mg-10mg/5ml Syr UD ONE (10:00)
[2019-01-02 10:02] VITALS: BP 109/65; PULSE 98; TEMP 98.8
== END 2019-01-02 10:02 | disposition home or self-care (01) ==
LOC: C.ER 07:34
DX: O99.512 Diseases of the respiratory system complicating pregnancy, second trimester (principal); J40 Bronchitis, not specified as acute or chronic; J06.9 Acute upper respiratory infection, unspecified; Z3A.18 18 weeks gestation of pregnancy